=== PATIENT | male | born 1950 | race Caucasian/White ===

== ENCOUNTER 2016-09-02 05:50 | Inpatient (IN) | payer OTHER ==
[2016-08-26 11:43] LABS: % IMMATURE GRANULYOCYTES 0.2 % (0.0-1.1); ABSOLUTE IMMATURE GRANULOCYTES 0.01 10^3/uL (0.00-0.10); ADD DIFF? NO; ADD MORPH? NO; ADD SCAN? NO; ATYPICAL LYMPHOCYTE FLAG 0 (0-99); FRAGMENT RBC FLAG 0 (0-99); HEMATOCRIT 44.2 % (40.0-51.0); HEMOGLOBIN 15.2 g/dL (13.7-17.5); LEFT SHIFT FLG 0 (0-99); LIPEMIA HEMOLYSIS FLAG 90 (0-99); MEAN CELL HEMOGLOBIN 32.3 pg (27.9-34.1); MEAN CELL HEMOGLOBIN CONCENTR. 34.4 g/dL (32.4-36.7); MEAN CELL VOLUME 93.8 fL (81.5-99.8); MEAN PLATELET VOLUME 9.5 fL (8.7-11.7); PLATELET CLUMPS FLAG 0 (0-99); PLATELET COUNT 183 10^3/uL (150-400); RED BLOOD CELL COUNT 4.71 10^6/uL (4.40-6.38); RED CELL DISTRIBUTION WIDTH 13.1 % (11.5-15.2)
[2016-08-26 12:27] LABS: ANION GAP 7 mEq/L (8-16); CALCIUM 9.5 mg/dL (8.5-10.4); CARBON DIOXIDE 25 mEq/l (22-31); CHLORIDE 106 mEq/L (97-110); CREATININE 0.8 mg/dL (0.7-1.3); GLOMERULAR FILTRATION RATE > 60; GLUCOSE 85 mg/dL (70-100); POTASSIUM 4.5 mEq/L (3.5-5.2); SODIUM 138 mEq/L (134-144)
[2016-09-02] MEDS ORDERED: LIDOCAINE 1% 2 ML INJ ONE (06:11)
[2016-09-02] MEDS ORDERED: morphINE PF 5 MG/10 ML INJ IT ONE (07:00)
[2016-09-02] MEDS ORDERED: CHLORHEXIDINE GLUC HIBICLENS 118 ML BTL TP ONE (07:00)
[2016-09-02] MEDS ORDERED: ceFAZolin 2 GM/DEXTROSE 100 ML IV ONE (07:00)
[2016-09-02] MEDS ORDERED: BUPIVACAINE/EPI 0.25% 30 ML SDV ONE (07:10)
[2016-09-02] MEDS ORDERED: THROMBIN (BOVINE) 20,000 UNIT VIAL TP ONE ×2 (07:10→11:42)
[2016-09-02] MEDS ORDERED: MIDAZOLAM 2 MG/2 ML VIAL ONE (07:11)
[2016-09-02] MEDS ORDERED: BACITRACIN 50,000 UNITS/10 ML SYR IRR ONE ×2 (07:11→11:42)
[2016-09-02] MEDS ORDERED: PROPOFOL/EMULSION 500 MG/50 ML BOTTLE IV ONE ×5 (07:20→12:15)
[2016-09-02] MEDS ORDERED: LIDOCAINE 2% 100 MG/5 ML SYR ONE (07:21)
[2016-09-02] MEDS ORDERED: METOCLOPRAMIDE 10 MG/2 ML VIAL ONE (07:21)
[2016-09-02] MEDS ORDERED: ROCURONIUM 100 MG/10 ML VIAL ONE (07:21)
[2016-09-02] MEDS ORDERED: DEXAMETHASONE 4 MG/ML VIAL ONE ×2 (07:21)
[2016-09-02] MEDS ORDERED: LR 1,000 ML IV ONE (07:27)
[2016-09-02] MEDS ORDERED: PHENYLEPHRINE 10 MG/ML SDV ONE (11:22)
[2016-09-02] MEDS ORDERED: HYDROmorphONE/DILAUDID 2 MG/ML INJ ONE (12:04)
[2016-09-02] MEDS ORDERED: morphINE PF 5 MG/10 ML INJ ONE (12:27)
[2016-09-02] MEDS ORDERED: ONDANSETRON DISINTEGRATING 4 MG TAB PO PRN (14:00)
[2016-09-02] MEDS ORDERED: NS W/ 20 KCl/L 1,000 ML IV SCH (14:00)
[2016-09-02] MEDS ORDERED: ONDANSETRON 4 MG/2 ML VIAL IVP PRN (14:00)
[2016-09-02] MEDS ORDERED: MAGNESIUM HYDROXIDE 30 ML UDCUP PO PRN (14:00)
[2016-09-02] MEDS ORDERED: POLYETHYLENE GLYCOL 3350 17 GM PKT PO PRN (14:00)
[2016-09-02] MEDS ORDERED: DIAZEPAM 10 MG/2 ML SYR IVP PRN (14:00)
[2016-09-02] MEDS ORDERED: BISACODYL 10 MG SUPP PR PRN (14:00)
[2016-09-02] MEDS ORDERED: diphenhydrAMINE 25 MG CAP PO PRN (14:00)
[2016-09-02] MEDS ORDERED: ACETAMINOPHEN 325 MG TAB PO PRN (14:00)
[2016-09-02] MEDS ORDERED: LACTULOSE 20 GM/30 ML UDCUP PO PRN (14:00)
--- NOTE | 2016-09-02 14:15 | POSTOPPROG ---
Post Op Note Date of Operation: 09/02/16 Surgeon: Luke Rojas Rn Progressive Care: Adalid Lacy PA-C Anesthesiologist: Barbra Anesthesia: GET(General Endotracheal) Pre-op Diagnosis: lumbar degenerative disc disease Post-op Diagnosis: same Indication: back pain Procedure: L2-S1 TLIF and posterior fusion Findings: Please see Dr Rojas's operative report Inf/Abcess present in the surg proc area at time of surgery?: No Depth: Organ Space EBL: 500-1000 Complications: none Drains: Michael Chicas (JPx1) Specimen(s): none PA Addendum - Addendum .: S: Pt resting in bed, c/o back pain O: Awake but sleepy NAD VSS MAEx4 Motor 5/5 BUE/BLE +LT Incision dressed cdi JPx1 Osborn in A: 65 yo M s/p L2-S1 TLIF and posterior fusion P: PT/OT Brace when OOB TEDs, SCDs, lovenox POD#1 Pain management Post op xrays pending DC osborn in AM Monitor DOMO output Call NS with any issues.
[2016-09-02] MEDS ORDERED: fentaNYL 100 MCG/2 ML INJ ONE (14:27)
[2016-09-02] MEDS ORDERED: HYDROmorphONE/DILAUDID 1 MG/ML SYR ONE (14:54)
[2016-09-02] MEDS ORDERED: DIAZEPAM 10 MG/2 ML SYR ONE (15:08)
[2016-09-02] MEDS: POLYETHYLENE GLYCOL 3350 17 GM PKT PO SCH ×2 (16:45→20:33)
[2016-09-02] MEDS: GABAPENTIN 400 MG CAP PO SCH ×2 (16:49→20:31)
[2016-09-02] MEDS: DIAZEPAM 5 MG TAB PO PRN ×2 (16:50→23:09)
[2016-09-02] MEDS: oxyCODONE IR 5 MG TAB PO PRN ×2 (18:28→23:09)
[2016-09-02] MEDS: HYDROmorphONE/DILAUDID 1 MG/ML SYR IVP PRN ×3 (20:25→23:09)
[2016-09-02] MEDS: METHOCARBAMOL 750 MG TAB PO PRN (20:27)
[2016-09-02] MEDS: FAMOTIDINE 20 MG TAB PO SCH (20:31)
[2016-09-02] MEDS: SENNOSIDES/DOCUSATE SODIUM TAB PO SCH (20:31)
[2016-09-02] MEDS ORDERED: FAMOTIDINE 20 MG/NACL 50 ML IV SCH (21:00)
[2016-09-03] MEDS: HYDROmorphONE/DILAUDID 1 MG/ML SYR IVP PRN ×4 (02:10→14:11)
[2016-09-03] MEDS: METHOCARBAMOL 750 MG TAB PO PRN (04:42)
[2016-09-03] MEDS: oxyCODONE IR 5 MG TAB PO PRN ×3 (04:42→12:40)
[2016-09-03 05:12] LABS: % IMMATURE GRANULYOCYTES 0.3 % (0.0-1.1); ABSOLUTE IMMATURE GRANULOCYTES 0.03 10^3/uL (0.00-0.10); ADD DIFF? NO; ADD MORPH? NO; ADD SCAN? NO; ATYPICAL LYMPHOCYTE FLAG 10 (0-99); FRAGMENT RBC FLAG 0 (0-99); HEMATOCRIT 29.5 % (40.0-51.0); HEMOGLOBIN 10.2 g/dL (13.7-17.5); LEFT SHIFT FLG 0 (0-99); LIPEMIA HEMOLYSIS FLAG 90 (0-99); MEAN CELL HEMOGLOBIN 32.8 pg (27.9-34.1); MEAN CELL HEMOGLOBIN CONCENTR. 34.6 g/dL (32.4-36.7); MEAN CELL VOLUME 94.9 fL (81.5-99.8); MEAN PLATELET VOLUME 9.5 fL (8.7-11.7); PLATELET CLUMPS FLAG 10 (0-99); PLATELET COUNT 146 10^3/uL (150-400); RED BLOOD CELL COUNT 3.11 10^6/uL (4.40-6.38)
--- NOTE | 2016-09-03 07:17 | NEUSURGPN ---
Date of Surgery: 09/02/16 Post Op Day: 1 Assessment/Plan: Assessment: 65 yo M s/p L2-S1 TLIF and posterior fusion POD #1 Plan: -PT/OT-CPM -Brace when OOB -TEDs, SCDs, lovenox POD#1-ordered -continue with current pain management-will add MS Contin and PO Dilaudid as well as scheduled Robaxin -Post op xrays pending -DC osborn today -continue to monitor DOMO output -pt seen and evaluated by Dr Rojas as well -call NS with any issues or complaints - and pt updated and agree with plan Subjective: Awake and alert. Pt with some pain control issues. No silverio/neck/chest/abd or gu complaints. No f/c/n/v/d. Objective: NAD, AFVSS MAEx4 Motor 5/5 BUE/BLE +LT Incision dressed cdi JPx1 Neuro Check Frequency: per routine Urinary Catheter in Place: No Catheter Insertion Date: 09/02/16 - Physician Discussed Patient with : Bob Patient Seen by : Bob Neurosurgery Physical Exam - Vitals, I&O, Labs I and O 09/02/16 09/03/16 09/04/16 05:59 05:59 05:59 Intake Total 3419 Output Total 3140 Balance 279 Intake: IV Intake (ml) 2750 IV Infused (ml) 669 NS W/ 20 KCl/L 1,000 ml @ 569 75 mls/hr IV CONT DAY Rx #:[id number] ceFAZolin 1 GM/DEXTROSE 100 50 ml @ 200 mls/hr IV Q8H DAY Rx#:[id number] Output: Urine (ml) 2320 Catheter 2320 Estimated Blood Loss (ml) 500 Wound Drainage (ml) 320 Back Michael Chicas 320 Vital Signs Temp Pulse Resp BP Pulse Ox 37.1 C 86 16 126/61 H 98 09/03/16 06:44 09/03/16 06:44 09/03/16 06:44 09/03/16 06:44 09/03/16 06:44 Laboratory Results 09/03/16 04:50 08/26/16 11:14 ICD10 Worksheet Patient Problems: Problems Problem Status Onset Arthrodesis status Acute Lumbar radicular pain Acute Lumbar stenosis Acute - ICD10 Problem Qualifiers (1) Lumbar stenosis (2) Lumbar radicular pain (3) Arthrodesis status
[2016-09-03] MEDS: GABAPENTIN 400 MG CAP PO SCH ×3 (08:36→21:23)
[2016-09-03] MEDS: LISINOPRIL/HCTZ 10/12.5 MG 1 EA TAB PO SCH (08:36)
[2016-09-03] MEDS: morphINE SR 15 MG TAB PO SCH ×2 (08:36→21:26)
[2016-09-03] MEDS: SENNOSIDES/DOCUSATE SODIUM TAB PO SCH ×2 (08:36→21:27)
[2016-09-03] MEDS: FAMOTIDINE 20 MG TAB PO SCH ×2 (08:36→21:22)
[2016-09-03] MEDS: DIAZEPAM 5 MG TAB PO PRN ×2 (08:36→14:10)
[2016-09-03] MEDS: POLYETHYLENE GLYCOL 3350 17 GM PKT PO SCH ×3 (08:36→21:27)
[2016-09-03] MEDS: HYDROmorphONE/DILAUDID 4 MG TAB PO PRN ×3 (10:56→21:24)
[2016-09-03] MEDS: METHOCARBAMOL 750 MG TAB PO SCH ×4 (12:39→21:25)
--- NOTE | 2016-09-03 13:14 | GOP ---
[f rep st] OPERATIVE REPORT DATE OF OPERATION: 09/02/2016 SURGEON: Luke Rojas MD VP PURCHASING: CHADWICK Jha ANESTHESIA: General. PREOPERATIVE DIAGNOSIS: 1. Degenerative disk disease, L2 through S1. 2. Severe degenerative disk disease, L2, L3, L4, and L5 with history of prior decompression and in situ fusion L4-5. 3. Low back pain. 4. Pain refractory to nonoperative intervention. POSTOPERATIVE DIAGNOSIS: 1. Degenerative disk disease, L2 through S1. 2. Severe degenerative disk disease, L2, L3, L4, and L5 with history of prior decompression and in situ fusion L4-5. 3. Low back pain. 4. Pain refractory to nonoperative intervention. PROCEDURE PERFORMED 1. Posterior arthrodesis with approach to L2, L3, L4, L5, and S1. 2. Postoperative fusion with bilateral pedicle screw placement into L2, L3, L4 , L5, and S1 from the [employer] system. 3. Left-sided L2-L3 and L3-L4 hemilaminotomies with mesial facetectomies, foraminotomies, and nerve root decompression. 4. Right-sided L4-L5 and L5-S1 hemilaminotomies, medial facetectomies, foraminotomies, and nerve root decompressions. 5. Left-sided L2-L3 transforaminal lumbar interbody fusion with a 6 x 26 mm Capstone PEEK cage filled with morselized autograft and allograft. 6. Left-sided L3-L4 transforaminal lumbar interbody fusion with a 9 x 26 mm Capstone PEEK cage filled with morselized autograft and allograft. 7. Right-sided L4-L5 transforaminal lumbar interbody fusion with a 6 x 26 mm Capstone PEEK cage filled with morselized autograft and allograft. 8. Right-sided L5-S1 transforaminal lumbar interbody fusion with a 7 x 28 mm titanium PEEK elevated cage filled with morselized autograft and allograft. 9. Posterolateral fusion on the right between L2 and L4 and left-sided L4 to S1 filled with morselized autograft and allograft. 10. Use of intraoperative 3D Stealth navigation. 11. Use of intraoperative fluoroscopy, less than 1 hour physician time. 12. Use of neuromonitoring. 13. Use of the operating microscope. 14. Injection of preservative-free intrathecal narcotics. FINDINGS: per imaging SPECIMENS: None. ESTIMATED BLOOD LOSS: 500 mL. INDICATIONS: The patient is a gentleman who has undergone a prior decompression fusion at L4-5. He presented with worsening low back pain. He has undergone multiple facet joint injections and ablations with his pain physician. After failing nonoperative interventions, and after discussion of the risks, benefits, and treatment alternatives, we decided to proceed forth with surgery as described above. Please note that the patient had lumbar numbering which was inconsistent, depending on his imaging studies, and his pain physician. He was known to have 6 lumbar vertebrae; however, the decision was made to operate on the bottom 4 levels of his spine, which we will call L2, L3, L4, L5, and S1; which, however, some would annotate as L3, L4, L5, L6, and S1. He presents now for that surgical intervention, and this is the designation that both he and I have agreed upon. DESCRIPTION OF PROCEDURE: Patient was brought to the operating theater and underwent general endotracheal anesthesia without complications. Venodyne's, GILLIAN hose, and appropriate lines were placed by Anesthesia. He was flipped prone onto the Michael table, and all bony processes were inspected and padded. The lower lumbar region was prepped and draped in the usual sterile surgical fashion. A time-out was completed per protocol, and the patient received antibiotics within 1 hour of incision. Using lateral fluoroscopy and a spinal needle, we picked our entry point to the L2 through S1 levels. This was marked in the midline and incorporated his prior lumbar incision. The incision was infiltrated with Marcaine with epinephrine. The incision was taken down initially with the scalpel blade, and then using the monopolar, the incision was taken down the midline through the lumbodorsal fascia, and subperiosteal dissection carried out to the transverse process of L2 , L3, L4, L5, and S1 bilaterally. Care was taken to avoid the previous hemilaminotomy defect on the left side at L4-L5. Deep retractors were placed to maintain our exposure and we confirmed our level using lateral fluoroscopy. We attached a 3D Stealth navigation clamp to the spinous process of L5 and completed a 3D Stealth navigation spin. Using 3-dimensional Stealth navigation, we placed the commercial airplane pilot holes for the bilateral pedicle screws into L2, L3, L4, L5, and S1. All holes were manually palpated with no evidence of any cortical breaches. We then tapped and placed 6.5 mm screws bilaterally into L2, L3, L4, L5, and S1 from the [email or web address] system. Another 3D Stealth navigational spin demonstrated good placement of the hardware. At this point, the microscope was brought into field to assist with microscopic dissection and to maintain illumination and magnification. Using a combination of the bur tip on the drill bit and Kerrison punches, we completed a left-sided L2-L3 and L3-L4, and right-sided L4-L5 and L5-S1 hemilaminotomy with mesial facetectomy, and foraminotomy with resection of the pars. We then moved up to L2 -L3 on the left side where we distracted the interspace and completed a left- sided L2-L3 diskectomy. We prepared the cartilaginous endplates and measured the interbody space. We placed a 6 x 26 mm titanium-coated PEEK cage filled with morselized autograft and allograft anteriorly toward the midline. We packed additional morcellized autograft in the disk space interbody fusion. We moved down to L3-L4, where we distracted the interspace on left side and completed a left-sided L3-L4 diskectomy. We prepared the cartilaginous endplates and measured interbody space. We then placed a 9 x 26 mm titanium- coated PEEK cage filled with morselized autograft and allograft anteriorly toward the midline. We packed additional morcellized autograft into the disk space for the interbody fusion and let down distraction. We then moved on to the right side L4-5, where we distracted the interspace and completed a right- sided L4-L5 diskectomy. We prepared the cartilaginous endplates and measured the interbody space. We then placed a 6 x 26 mm Capstone titanium-coated PEEK cage filled with morselized autograft and allograft anteriorly toward the midline. We packed additional morcellized autograft in the disk space interbody fusion, let down the distraction, and then moved down to L5-S1. We distracted the L5-S1 disk space on the right side and complete a right-sided L5-S1 diskectomy. We prepared the cartilaginous endplates and measured the interbody space. We then placed a 7 x 28 mm titanium PEEK elevated cage filled with morselized autograft and allograft anteriorly toward the midline. We packed additional morcellized autograft into the disk space for the interbody fusion. We let down distraction and decorticated the bone on the right side between L2 and L4 and left side at L4 to S1. We irrigated the wound copiously with bacitracin irrigation. We placed 2 lordotic rods into the heads of the screws between L2 and S1 and secured them down with cap screws, which were tightened per the client support coordinator's setting. We placed morselized autograft and allograft on the right side between L2 and L4 left-sided L4 to S1 for the posterolateral fusion. We injected preservative-free intrathecal narcotics and left a drain in the subfascial space. The wound was then closed in multiple layers using Vicryl sutures to the deep layers and Dermabond for the skin. The patient's wounds were dressed sterilely. He was then flipped supine onto the transfer cart, where he was awakened, extubated, and taken to recovery in stable condition. There were no complications and no noted changes on neuromonitoring throughout the procedure. COMPLICATIONS: None. /[id number]/MODL MTDD
[2016-09-03] MEDS: ENOXAPARIN 40 MG/0.4 ML SYR SC SCH (17:20)
[2016-09-04] MEDS: METHOCARBAMOL 750 MG TAB PO SCH ×4 (05:28→21:43)
[2016-09-04] MEDS: HYDROmorphONE/DILAUDID 4 MG TAB PO PRN (05:28)
--- NOTE | 2016-09-04 06:48 | NEUSURGPN ---
Assessment/Plan: Assessment: 65 yo M s/p L2-S1 TLIF and posterior fusion POD #2 Plan: -PT/OT-CPM -Brace when OOB -TEDs, SCDs, lovenox -continue with current pain management- MS Contin and PO Dilaudid as well as scheduled Robaxin -Post op xrays with intact hardware -will d/c DOMO at noon today -Discussed with Dr. rosas -call NS with any issues or complaints - and pt updated and agree with plan Subjective: low back pain, denies any leg pain Objective: NAD A&Ox3 MAEx4 08/15 and equal in BUE and BLE. Incision c/d/i. DOMO drain serosanguineous Catheter Insertion Date: 09/02/16 - Physician Discussed Patient with : Bob Neurosurgery Physical Exam - Vitals, I&O, Labs I and O 09/03/16 09/04/16 09/05/16 05:59 05:59 05:59 Intake Total 3419 300 Output Total 3140 580 Balance 279 -280 Intake: Oral (ml) 300 IV Intake (ml) 2750 0 IV Infused (ml) 669 NS W/ 20 KCl/L 1,000 ml @ 569 75 mls/hr IV CONT DAY Rx #:[id number] ceFAZolin 1 GM/DEXTROSE 100 50 ml @ 200 mls/hr IV Q8H DAY Rx#:[id number] Output: Urine (ml) 2320 500 Catheter 2320 Toilet 500 Estimated Blood Loss (ml) 500 Wound Drainage (ml) 320 80 Back Michael Chicas 320 80 Other: Intake Quantity Yes Sufficient Number of Voids Toilet 1 Vital Signs Temp Pulse Resp BP Pulse Ox 36.6 C 87 16 135/74 H 96 09/04/16 04:00 09/04/16 04:00 09/04/16 04:00 09/04/16 04:00 09/04/16 04:00 Laboratory Results 09/03/16 04:50 08/26/16 11:14 ICD10 Worksheet Patient Problems: Problems Problem Status Onset Arthrodesis status Acute Lumbar radicular pain Acute Lumbar stenosis Acute
[2016-09-04] MEDS: FAMOTIDINE 20 MG TAB PO SCH ×2 (08:42→21:43)
[2016-09-04] MEDS: morphINE SR 15 MG TAB PO SCH ×2 (08:42→21:43)
[2016-09-04] MEDS: GABAPENTIN 400 MG CAP PO SCH ×3 (08:42→21:43)
[2016-09-04] MEDS: LISINOPRIL/HCTZ 10/12.5 MG 1 EA TAB PO SCH (08:42)
[2016-09-04] MEDS: ENOXAPARIN 40 MG/0.4 ML SYR SC SCH (08:43)
[2016-09-04] MEDS: SENNOSIDES/DOCUSATE SODIUM TAB PO SCH ×2 (08:43→21:43)
[2016-09-04] MEDS: POLYETHYLENE GLYCOL 3350 17 GM PKT PO SCH ×3 (08:43→21:44)
[2016-09-04 15:56] VITALS: RESP 16
[2016-09-05] MEDS: METHOCARBAMOL 750 MG TAB PO SCH ×3 (04:46→16:31)
[2016-09-05] MEDS: HYDROmorphONE/DILAUDID 4 MG TAB PO PRN ×2 (04:46→14:11)
--- NOTE | 2016-09-05 08:47 | NEUSURGPN ---
Assessment/Plan: Assessment: 65 yo M s/p L2-S1 TLIF and posterior fusion POD #3 Plan: -PT/OT-CPM -Brace when OOB -TEDs, SCDs, lovenox -continue with current pain management- MS Contin and PO Dilaudid as well as scheduled Robaxin -Post op xrays with intact hardware -Discussed with Dr. Rojas -call NS with any issues or complaints -Dispo: likely home later today if continues to do well. Subjective: Pt resting in bed, states doing better with med changes. Objective: AAOx3 NAD VSS MAEx4 Motor 5/5 BLE +LT Incision cdi Urinary Catheter in Place: No Catheter Insertion Date: 09/02/16 - Physician Discussed Patient with : Bob Neurosurgery Physical Exam - Vitals, I&O, Labs I and O 09/04/16 09/05/16 09/06/16 05:59 05:59 05:59 Intake Total 300 100 Output Total 580 380 Balance -280 -280 Intake: Oral (ml) 300 100 IV Intake (ml) 0 Output: Urine (ml) 500 350 Toilet 500 350 Wound Drainage (ml) 80 30 Back Michael Chicas 80 30 Other: Intake Quantity Yes Sufficient Number of Voids Toilet 1 1 Number of Stools Toilet 1 Vital Signs Temp Pulse Resp BP Pulse Ox 37.6 C 92 16 115/60 92 09/05/16 08:09 09/05/16 08:09 09/05/16 08:09 09/05/16 08:09 09/05/16 08:09 Laboratory Results 09/03/16 04:50 08/26/16 11:14 ICD10 Worksheet Patient Problems: Problems Problem Status Onset Arthrodesis status Acute Lumbar radicular pain Acute Lumbar stenosis Acute
[2016-09-05] MEDS: ENOXAPARIN 40 MG/0.4 ML SYR SC SCH (08:51)
[2016-09-05] MEDS: LISINOPRIL/HCTZ 10/12.5 MG 1 EA TAB PO SCH (08:51)
[2016-09-05] MEDS: GABAPENTIN 400 MG CAP PO SCH ×2 (08:51→16:31)
[2016-09-05] MEDS: morphINE SR 15 MG TAB PO SCH (08:51)
[2016-09-05] MEDS: FAMOTIDINE 20 MG TAB PO SCH (08:51)
[2016-09-05] MEDS: POLYETHYLENE GLYCOL 3350 17 GM PKT PO SCH ×2 (08:54→16:32)
[2016-09-05] MEDS: SENNOSIDES/DOCUSATE SODIUM TAB PO SCH (08:54)
--- NOTE | 2016-09-05 12:13 | PDIAF ---
- Diagnosis Code Status: Full Code - Medication Management Discharge Medications: Medications to Continue on Transfer Gabapentin [Neurontin] 1,200 mg PO TID 08/04/16 [Last Taken 09/02/16 04:00] Lisinopril/Hydrochlorothiazide [Lisinopril-Hctz 10-12.5 mg Tab] 1 each PO DAILY 08/04/16 [Last Taken 09/01/16] HYDROmorphone HCL [Dilaudid 4 mg (*)] 2 mg PO Q4HRS PRN #60 tab 09/05/16 [Last Taken Unknown] Methocarbamol [Robaxin 750 mg (*)] 750 mg PO QID #60 tab 09/05/16 [Last Taken Unknown] morphINE SR [Ms Contin/Oramorph 15 mg (*)] 15 mg PO BID #60 tab 09/05/16 [Last Taken Unknown] Discharge Medications: Refer to the Discharge Home Medication list for PRN reason. - Orders Services needed: Home Care, Occupational Therapy Home Care Face to Face: I certify that this patient was under my care and that I had the required [id number] encounter meeting the encounter requirements on the discharge day. My findings support the fact that the patient is homebound as defined in CMS Chapter 7 Medicare Benefits Manual 30.1.1, The condition of the patient is such that there exists a normal inability to leave home and consequently, leaving home would require a considerable and taxing effort. Diet Recommendation: no restrictions on diet Diet Texture: Regular Texture Diet - Follow Up Care Current Providers and Referrals: ELIA ALONSO [Other] Luke Rojas MD [Medical Doctor] -
[2016-09-05 15:06] VITALS: BP 121/58; PULSE 82; TEMP 99; O2SAT 98
[2016-09-05] MEDS: oxyCODONE IR 5 MG TAB PO PRN (17:24)
== END 2016-09-05 18:30 | disposition home health service (06) | DRG 460 ==
LOC: F3N 05:50
PROVIDERS: ADMIT Neurological Surgery; ATTEND Neurological Surgery
PROC: 0SG30AJ Fusion of Lumbosacral Joint with Interbody Fusion Device, Posterior Approach, Anterior Column, Open Approach (ICD-10-PCS; principal; 2016-09-02 07:15)
PROC: 0SG1071 Fusion of 2 or more Lumbar Vertebral Joints with Autologous Tissue Substitute, Posterior Approach, Posterior Column, Open Approach (ICD-10-PCS; principal; 2016-09-02 07:15)
PROC: 0ST20ZZ Resection of Lumbar Vertebral Disc, Open Approach (ICD-10-PCS; principal; 2016-09-02 07:15)
PROC: 0SG3071 Fusion of Lumbosacral Joint with Autologous Tissue Substitute, Posterior Approach, Posterior Column, Open Approach (ICD-10-PCS; principal; 2016-09-02 07:15)
PROC: 8E0WXBZ Computer Assisted Procedure of Trunk Region (ICD-10-PCS; principal; 2016-09-02 07:15)
PROC: 4A10X4G Monitoring of Central Nervous Electrical Activity, Intraoperative, External Approach (ICD-10-PCS; principal; 2016-09-02 07:15)
PROC: 0SG10AJ Fusion of 2 or more Lumbar Vertebral Joints with Interbody Fusion Device, Posterior Approach, Anterior Column, Open Approach (ICD-10-PCS; principal; 2016-09-02 07:15)
PROC: 01NB0ZZ Release Lumbar Nerve, Open Approach (ICD-10-PCS; principal; 2016-09-02 07:15)
PROC: 01NR0ZZ Release Sacral Nerve, Open Approach (ICD-10-PCS; principal; 2016-09-02 07:15)
DX: M51.37 Other intervertebral disc degeneration, lumbosacral region (principal); M43.16 Spondylolisthesis, lumbar region; Z98.1 Arthrodesis status; I10 Essential (primary) hypertension; Z96.641 Presence of right artificial hip joint; Z85.820 Personal history of malignant melanoma of skin
CPT/HCPCS: 97116-GP; 97161-GP; 97166-GO; 97532-GO; 97535-GO; C1713; C1762; G8978-GP-CJ; G8979-GP-CI; G8980-GP-CI; G8987-GO-CK; G8988-GO-CI; J0690; J1100; J1170; J1650; J2001; J2250; J2274; J2370; J2704; J2765; J3010